=== PATIENT | female | born 1945 | race Caucasian/White ===

== ENCOUNTER 2024-03-23 15:58 | Emergency (ER) | payer MEDICARE, OTHER, SELFPAY ==
[2024-03-23 16:00] VITALS: BP 196/100
[2024-03-23 16:25] LABS: % Basophils 0.6 % (0-2); % Immature Granulocytes 0.4 % (0-0.5); % Lymphocytes 15.1 % (20.5-51.1); % Monocytes 6.9 % (1.7-9.3); Absolute Basophils 0.1 10^3/uL (0-0.2); Absolute Eosinophils 0.3 10^3/uL (0-0.7); Absolute Lymphocytes 1.2 10^3/uL (1.2-3.4); Absolute Monocytes 0.6 10^3/uL (0.1-0.6); Absolute Neutrophils 5.8 10^3/uL (1.4-6.5); Hematocrit 33.9 % (37.0-47.0); Hemoglobin 11.8 g/dL (12.0-16.0); Mean Corp Hgb Conc. 34.8 g/dL (33.0-37.0); Mean Corpuscular Hgb 29.1 pg (27.0-31.0); Mean Corpuscular Volume 83.7 fL (81.0-99.0); Mean Platelet Volume 9.2 fL (7.4-10.4); Nucleated Red Blood Cells % 0 %; Platelet Count 241 10^3/uL (130-400); Red Blood Cell Count 4.05 10^6/uL (4.20-5.40); Red Cell Dist. Width 12.5 % (11.5-14.5)
[2024-03-23 16:41] LABS: ALT (SGPT) 13 U/L (0-35); AST (SGOT) 31 U/L (14-36); Albumin 4.1 g/dl (3.5-5.0); Alkaline Phosphatase 153 U/L (38-126); Blood Urea Nitrogen 10 mg/dl (7-17); Calcium 9.6 mg/dl (8.4-10.2); Carbon Dioxide 27 mmol/L (22-30); Chloride 98 mmol/L (98-107); Glucose 167 mg/dl (70-99); Potassium 5.4 mmol/L (3.5-5.1); Sodium 132 mmol/L (135-145); Total Bilirubin 0.7 mg/dl (0.2-1.3); Total Protein 7.5 g/dl (6.3-8.2); eGFR > 60.00
[2024-03-23 18:11] VITALS: BP 183/77
[2024-03-23 18:20] VITALS: BP 172/85
[2024-03-23 18:23] VITALS: BMI 23.4
--- NOTE | 2024-03-23 18:44 | ED.GENMED ---
History of Present Illness
General
Chief Complaint: Abnormal Lab Value
Source: patient
Exam Limitations: none
Time Seen by Provider: 03/23/24 18:14
History of Present Illness
History of Present Illness:
This is a 79 year old female that comes in with c/o abnormal labs. States that her GI doctor see's her once and year and they wanted blood work before her visit. States that she had labs done on Thursday and today she got a call from there office and
was told that her Potassium is elevated. States that she was told to come to the ER as this could be live threatening. Denies any fever, chills, chest pain, SOB, abd pain, nausea, vomiting, diarrhea, headche, dizziness, urinary burning.
Past History
Past History
ED Past Medical History: NIDDM and Other (Alcohol abuse, and GI bleed. )
ED Past Surgical History: Orthopedic (Left wrist surgery)
Social History
Tobacco: Former smoker
Alcohol: None
Drug: None
Personal:
Living: alone
Review of Systems
Review of Systems
All Other Systems: ROS reviewed and negative except as documented in HPI and ROS
Constitutional: Reports no symptoms; Denies fever or chills
EENT: Reports no symptoms
Respiratory: Reports no symptoms; Denies cough or trouble breathing
Cardiac: Reports no symptoms; Denies chest pain
ABD/GI: Reports no symptoms; Denies abdominal pain, nausea, vomiting or diarrhea
: Reports no symptoms; Denies dysuria, frequency or urgency
Musculoskeletal: Reports no symptoms
Skin: Reports no symptoms
Neurological: Reports no symptoms; Denies dizzy or headache
Psychiatric: Reports no symptoms
Phy Exam
General Physical Exam
General Presentation: well appearing and no apparent distress
General age: appears stated age
General Skin: warm and dry
General Habitus: elderly
General Mental: alert
General Hydration: appears well hydrated
ENT Exam
ENT Exam: TM's normal, pharynx normal and neck supple
Eye Exam
Eye Exam: EOMI
Cardiovascular Exam
Cardiovascular Exam: regular rate/rhythm, no edema, no murmur and normal peripheral pulses
Pulmonary Exam
Pulmonary Exam: lungs clear, no respiratory distress, no rales, chest non tender, no crackles, no rhonchi, no wheezing and no cough
Gastrointestinal Exam
Gastrointestinal Exam: normal bowel sounds, non tender, soft, no organomegaly, no pulsatile mass and non distended
Musculoskeletal Exam
Musculoskeletal Exam: full ROM and no edema
Skin Exam
Skin Exam: normal color, warm/dry, no rash and no petechia
Psychiatric Exam
Psychiatric Exam: normal mood/affect
Course
Orders/Labs/Results
Orders:
Orders
03/23/24 16:03
Electrocardiogram (*1) Urgent
Reason for Study: Abnormal EKG
03/23/24 16:04
EKG- Treatment ONCE
03/23/24 16:15
CMP [Comprehensive Metabolic Panel] Urgent
Complete Blood Count/With Diff Urgent
Abnormal Lab Results
03/23/24
16:15
RBC 4.05 L 10^6/uL
(4.20-5.40)
Hgb 11.8 L g/dL
(12.0-16.0)
Hct 33.9 L %
(37.0-47.0)
Lymphocytes % 15.1 L %
(20.5-51.1)
Sodium 132 L mmol/L
(135-145)
Potassium 5.4 H mmol/L
(3.5-5.1)
Glucose 167 H mg/dl
(70-99)
Alkaline Phosphatase 153 H U/L
(38-126)
03/23/24 16:15
03/23/24 16:15
H/H very slightly low. Sodium slightly low. Potassium slightly elevated. Glucose nonfasting. Alk phos elevationi.
Vital Signs
Initial and Last Documented VS:
Initial Vital Signs
Temp Pulse Resp BP Pulse Ox
98.3 F 92 16 196/100 98
03/23/24 16:00 03/23/24 16:00 03/23/24 16:00 03/23/24 16:00 03/23/24 16:00
Last Documented Vital Signs
Temp Pulse Resp BP Pulse Ox
98.6 F 76 14 172/85 99
03/23/24 18:20 03/23/24 18:20 03/23/24 18:20 03/23/24 18:20 03/23/24 18:20
MDM/Problems Addressed
Differential Diagnosis Includes:
Lab check, hyperkalemia
MDM/Problems Addressed:
This is a 79 year old female that comes in as she was told that her Potassium was elevated. States that they did not give her any numbness. States that her blood work was done on Thursday. States that she eats a banana every morning and has been
eating a lot of fruit. States that she also take Metformin and will take this tonight.
Will get labs.
Explained to patient that her Potassium is very slightly elevated. This fluctuates daily. Will have patient stop eating her banana's daily and cut back on her fruit for the next couple of days. Patient to increase her water intake. have repeat labs
by PCP in 2-3 days. Return with any concerns.
Chronic conditions affecting care: DM
Acute Exacerbation and/or Progression of Chronic Illness:
NA
*Pulse Oximetry
Patient hypoxic: no
*EKG
Interpreted by ED Provider?: Yes
Heart Rate: 83
Rate: normal
Rhythm: sinus
[place]: normal axis
Interval: normal interval
QRS Pattern: right bundle branch block
Ischemia: T-wave inversion (v1, v2, )
*Quality Assurance Project Manager Interpretation
Rate: normal
Heart Rate: 68
Rhythm: sinus
*Critical Care Note
Total Time (30-74mins, 75-104mins- exclusive of procedures): Not Applicable
ED Attending Note
-
Portions of this chart may have been created with voice recognition software.� Occasional wrong word or��sound alike� substitutions may have occurred due to the inherent limitations of voice recognition software.
Discharge Plan
Departure
Patient Disposition: Home (Routine Discharge)
Date of Disposition: 03/23/24
Time of Disposition: 18:52
Patient with high blood pressure during this ER visit?: Yes
Condition: Good
Covid-19: Not Applicable
Discharge Problem:
Alteration in lab values
Instructions: Hyperkalemia (DC), BLOOD PRESSURE
Prescriptions:
No Action
No Meds
prednisone 20 MG tablet
40 mg PO DAILY Qty: 10 0RF
triamcinolone acetonide [Kenalog] 15 GM ointment
30 gm topical BID Qty: 30 1RF
fluconazole 150 MG tablet
150 mg PO DAILYPRN PRN (Reason: rash) Qty: 6 0RF
metformin 500 MG tablet
500 mg PO BID Qty: 10 0RF
sulfamethoxazole-trimethoprim 1 TABLET tablet
1 tab PO BID Qty: 20 0RF
Referrals:
Donald Bryson MD [Family Provider] - Follow up in 2-3 days
Activity Restrictions/Additional Instructions:
As discussed, your blood work shows that your Potassium is very slightly elevated at 5.4. Please hold of on eating your Banana's for the next 2-3 days and decrease your fruit intake for 2-3 days. Increase your water intake to 8-8oxz glasses daily.
Have your Family doctor repeat your labs in 2-3 days for recheck. IF YOU HAVE ANY OTHER CONCERNS PLEASE RETURN TO THE EMERGENCY ROOM.
Interventions
Interventions:
*Risk Screen - Suicide Last Done: 03/23/24 18:26
*General Assessment Last Done: 03/23/24 18:26
*Neglect/Abuse Screening Last Done: 03/23/24 18:24
*ED COVID-19 Vaccine History Last Done: 03/23/24 16:00
Discharge Date and Time
Print Language: [id number]
== END 2024-03-23 19:05 | disposition home or self-care (01) ==
LOC: EMR 15:58
PROVIDERS: Emergency Medicine; EMERGENCY PHYSICIAN Emergency Medicine; FAMILY PHYSICIAN Family Medicine
DX: R79.89 Other specified abnormal findings of blood chemistry (principal); R03.0 Elevated blood-pressure reading, without diagnosis of hypertension; I45.10 Unspecified right bundle-branch block; E11.9 Type 2 diabetes mellitus without complications; F10.11 Alcohol abuse, in remission; Z87.891 Personal history of nicotine dependence
CPT/HCPCS: 99283; 80053; 85025; 93005